=== PATIENT | male | born 1995 ===

== ENCOUNTER 2017-05-27 17:29 | Emergency (ER) ==
--- NOTE | 2017-05-27 17:45 | EKG REPORT ---
SEVERITY:- BORDERLINE ECG - SINUS RHYTHM INFERIOR Q WAVES, PROBABLY NORMAL VARIATION : Confirmed by: Allie Laws 27-May-2017 17:44:58
== END 2017-05-27 19:34 | disposition left against medical advice (07) ==
LOC: ER 17:29
DX: Z53.21 Procedure and treatment not carried out due to patient leaving prior to being seen by health care provider (principal)
CPT/HCPCS: 93005; 93010